=== PATIENT | male | born 1980 | race Caucasian/White ===

== ENCOUNTER 2022-09-15 09:53 | Outpatient (CLI) | payer OTHER ==
--- NOTE | 2022-09-15 12:45 | XRAY Report ---
PROCEDURE: Lumbar Spine 2 View INDICATIONS: LUMBAR PAIN TECHNIQUE: 2 views of the lumbar spine were acquired. COMPARISON: None. FINDINGS: Bones: 5 [id number] vertebrae are present. There is normal bony alignment. Mild disc height lo ss posteriorly at L5-S1. No vertebral body compression fractures. No suspicious bony lesions. Soft tissues: Overlying bowel gas pattern is normal. No suspicious soft tissue calcifications. IMPRESSION: Mild L5-S1 spondylosis. Reviewed by: Adalgisa Yu MD on 09/15/2022 12:44 PM PDT Approved by: Adalgisa Yu MD on 09/15/2022 12:44 PM PDT Station ID: [id number]
== END 2022-09-15 09:54 | disposition home or self-care (01) ==
LOC: DI 09:53
PROVIDERS: ATTEND Internal Medicine Cardiovascular Disease
DX: M47.816 Spondylosis without myelopathy or radiculopathy, lumbar region (principal)